=== PATIENT | female | born 1955 | race Caucasian/White ===

== ENCOUNTER 2023-11-13 11:22 | Emergency (ER) | payer MEDICARE, OTHER, SELFPAY ==
[2023-11-13 11:30] VITALS: BP 162/84; PULSE 110; RESP 20; TEMP 37.1; O2SAT 99
--- NOTE | 2023-11-13 11:54 | ED.URI ---
HPI - URI/Sore Throat General Chief Complaint: Upper Respiratory Infection Stated Complaint: Sore Throat History of Present Illness HPI Narrative: Pt is a 68 y/o female, presents to with 3 day hx of sore throat, body aches and malaise. She has no additional URI symptoms. She cares for her grandson who has recently been ill with similar symptoms and was positive for strep last week. She denies additional associated symptoms or modifying factors today. Related Data Home Medications Medication Instructions Recorded Confirmed esomeprazole magnesium 40 mg 40 mg PO DAILY 11/13/23 11/13/23 capsule,delayed release ezetimibe 10 mg tablet 10 mg PO DAILY 11/13/23 11/13/23 metoprolol tartrate 25 mg tablet 25 mg PO DAILY 11/13/23 11/13/23 pioglitazone 30 mg tablet 30 mg PO DAILY 11/13/23 11/13/23 Allergies Allergy/AdvReac Type Severity Reaction Status Date / Time metformin Allergy Unknown Unknown Verified 11/13/23 11:44 codeine AdvReac Intermediate Dizziness Verified 11/13/23 11:44 Review of Systems Constitutional: Comments: refer to HPI ENT: Comments: refer to HPI [facility] Family History Family History (Updated 08/05/16 @ 12:39 by DOCTOR UNKNOWN) Mother Diabetes mellitus Father Hypertension Family history of coronary artery disease Social History Social History Smoking status: Never smoker Alcohol intake: never Exam Const: General: healthy appearing, no acute distress and alert Nutritional Appearance: well nourished Orientation/consciousness: patient oriented x3 Limitations: no limitations HENMT: Head: normal to inspection Ears: external ears normal and TM's normal bilaterally Face/Nose/Sinus: Normal external nose present Face and sinus: normal facial exam Mouth: Yes Normal oral and palatal mucosa present Teeth and gingiva: dentition normal Throat: uvula midline Other: beefy red erythema to the pharyngeal mucosa, tonsils are 2+ bilaterally, no exudate noted. No trismus Eyes: Conjunctivae: conjunctivae normal Pupils: Equal, round and reactive pupils present EOM: EOMs intact bilaterally Neck: Neck: normal visual inspection, no meningeal signs and lymphadenopathy bilateral anterior cervical Resp: Effort & Inspection: normal respiratory effort Auscultation: clear to auscultation bilaterally Cardio: Rate: regular rate Rhythm: regular rhythm Other: HR 98 at PMI Back/Spine/Pelvis: Back: no CVA tenderness Skin: General skin exam: normal color Rashes: no rashes Wounds: no wounds Neuro: General: patient oriented x3, moves all extremities, no meningeal signs, no focal motor deficits and CN's II-XI intact bilaterally Cranial nerves: Yes Nystagmus not present Speech: normal speech Gait exam (Neuro): Normal gait present Extrem: General: normal to inspection, no clubbing, cyanosis or edema and no pedal edema Course Course Emergency Course: strep positive, will treat with cephalexin, BID for 10 days, FU with PCP in 3 days if symptoms are not resolving, apAP and Motrin for fevers, ER if difficulty swallowing arise. Pt is agreeable with plan. Level of Care: Express Care Visit (09219) MDM - URI/Sore Throat MDM Narrative Medical decision making narrative: strep positive, will treat with cephalexin, BID for 10 days, FU with PCP in 3 days if symptoms are not resolving, apAP and Motrin for fevers, ER if difficulty swallowing arise. Pt is agreeable with plan Differential Diagnosis Differential diagnosis: Likely upper respiratory infection, viral infection, pharyngitis and other (strep) Lab Data Labs: Strep Screen Positive Group A Strep *(Reference Range: Negative)* Discharge Plan Discharge Clinical Impression: Strep sore throat Patient Disposition: Home, Self-Care Condition: Stable Instructions: Antibiotic Form, Strep Throat (ED) Additional Instructions: START AND COMPLETE ANTIBIOTICS DIRE
== END 2023-11-13 12:04 | disposition home or self-care (01) ==
PROVIDERS: Emergency Provider Nurse Practitioner Family; PCP Internal Medicine
DX: J02.0 Streptococcal pharyngitis (principal)
CPT/HCPCS: 87880; 99213; G0463